=== PATIENT | female | born 1960 | race Caucasian/White ===

== ENCOUNTER 2022-08-30 00:22 | Day surgery (SDC) | payer OTHER, SELFPAY ==
[2022-08-20 09:34] VITALS: BMI 31.8
--- NOTE | 2022-08-30 08:30 | WPDANESEPPF ---
Anes - Initial Pre Proc Eval Procedure: Operation Date: 08/30/22 09:30 Proposed Procedures p Screening Colonoscopy - Pravin Galaviz MD Date/Time: 08/30/22 08:30 Surgeon: Pravin Galaviz MD Pre Op Diagnosis: neoplasm screening Patient Data Age: 62 Gender: F Height: 1.65 m Weight: 87 kg Allergies Allergy/AdvReac Type Severity Reaction Status Date / Time lisinopril Allergy Intermediate Cough Verified 08/30/22 08:43 Home Medications Medication Instructions Recorded Confirmed Type sodium,potassium,mag sulfates 17.5 See Rx Instructions PO .COMPLEX 07/17/22 08/20/22 Rx gram-3.13 gram-1.6 gram oral soln #354 mL (Suprep Bowel Prep Kit) ascorbic acid (vitamin C) 500 mg 500 mg PO DAILY 08/20/22 08/20/22 History tablet aspirin 81 mg tablet 81 mg PO HS 08/20/22 08/20/22 History buspirone 10 mg tablet 10 mg PO TID 08/20/22 08/30/22 History cetirizine 10 mg capsule (Zyrtec) 10 mg PO DAILY 08/20/22 08/20/22 History losartan 25 mg tablet 25 mg PO DAILY 08/20/22 08/20/22 History metoprolol succinate 50 mg 50 mg PO BID 08/20/22 08/30/22 History tablet,extended release 24 hr montelukast 10 mg tablet 10 mg PO DAILY 08/20/22 08/20/22 History rektzsquuqmy-lisfsedw-owwcam tablet 1 tablet PO DAILY 08/20/22 08/20/22 History sertraline 100 mg tablet 100 mg PO DAILY 08/20/22 08/20/22 History Patient hx anesthesia problems: none Family hx anesthesia problems: none Results Review: All pre-operative results and documents have been reviewed as part of the pre-operative evaluation. [facility] Past Medical History Medical History (Updated 08/30/22 @ 08:30 by Harshil Ferguson DO) Anxiety Bradycardia Hypertension Pacemaker Social History Social History Smoking status: Never smoker Alcohol intake: current Drinks per week: 3 Alcohol use details: BEERS Substance use: never Substance use type: does not use Living arrangements: with family Spiritual care concerns: No Anes - Eval Final PreProcedure Day of Procedure 08/30/22 08:30 Patient weight: obese Heart: regular rate and rhythm Lungs: clear to auscultation Airway: Mallampati scale class II Neurological: alert and oriented Last oral intake: >/= 8 hours ASA classification: III Emergent: no Anesthetic plan: proceed Anesthesia type and monitoring: general GIVS and standard monitoring Results Review: All pre-operative results and documents have been reviewed as part of the pre-operative evaluation. Informed Consent: The patient's anesthetic plan and its attendant risks and benefits were discussed with the patient/family/POA. Questions were solicited and answers provided to the satisfaction of the patient/family/POA.
[2022-08-30 08:45] VITALS: BP 132/98; PULSE 89; RESP 20; TEMP 36.1
[2022-08-30] MEDS: LACTATED RINGERS 1,000 ML 150 ML IV CONT (08:55)
--- NOTE | 2022-08-30 09:31 | P.HP_ITS ---
History of Present Illness History of Present Illness Consent: Risks, benefits, and alternatives have been discussed and questions answered. Patient agrees to proceed with procedure. Chief complaint: neoplasm screening Narrative: Josette Jovel is a 62 year old female Presents for screening colonoscopy. Patient's current weight appetite bowel movements are normal. Patient denies abdominal pain. She has had no bleeding. Family history is noncontributory. Previous colonoscopy 10 years was under with remarkable. 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 She has recently had a pacemaker with no difficulties. Review of Systems Review of Systems: Review of systems noncontributory. [facility] [place] Past Medical History Medical History (Updated 08/30/22 @ 09:33 by Pravin Galaviz MD) Anxiety Bradycardia Hypertension Pacemaker Social History Social History Smoking status: Never smoker Alcohol intake: current Drinks per week: 3 Alcohol use details: BEERS Substance use: never Substance use type: does not use Living arrangements: with family Spiritual care concerns: No Meds Home Medications and Allergies Home Medications Medication Instructions Recorded Confirmed Type sodium,potassium,mag sulfates 17.5 See Rx Instructions PO .COMPLEX 07/17/22 08/20/22 Rx gram-3.13 gram-1.6 gram oral soln #354 mL (Suprep Bowel Prep Kit) ascorbic acid (vitamin C) 500 mg 500 mg PO DAILY 08/20/22 08/20/22 History tablet aspirin 81 mg tablet 81 mg PO HS 08/20/22 08/20/22 History buspirone 10 mg tablet 10 mg PO TID 08/20/22 08/30/22 History cetirizine 10 mg capsule (Zyrtec) 10 mg PO DAILY 08/20/22 08/20/22 History losartan 25 mg tablet 25 mg PO DAILY 08/20/22 08/20/22 History metoprolol succinate 50 mg 50 mg PO BID 08/20/22 08/30/22 History tablet,extended release 24 hr montelukast 10 mg tablet 10 mg PO DAILY 08/20/22 08/20/22 History bbscaxizzqws-jpnlgbka-tfnjub tablet 1 tablet PO DAILY 08/20/22 08/20/22 History sertraline 100 mg tablet 100 mg PO DAILY 08/20/22 08/20/22 History Allergies Allergy/AdvReac Type Severity Reaction Status Date / Time lisinopril Allergy Intermediate Cough Verified 08/30/22 08:43 Vital Signs Vital Signs - 24 hr 08/30/22 08:45 Temperature 97 F L Pulse Rate 89 Respiratory Rate 20 Blood Pressure 132/98 H Oxygen Delivery Room Air Exam Narrative: Physical exam reveals patient to be alert. Vital signs stable. HEENT exam is unremarkable. lungs are clear to auscultation and percussion. Heart is without murmur or extra sounds. Abdomen bowel sounds are present soft nontender with no organomegaly. Digital external rectal exam normal. Assessment and Plan Assessment and plan (1) Encounter for screening colonoscopy: Code(s): Z12.11 - Encounter for screening for malignant neoplasm of colon Status: Acute Assessment and Plan: Patient presents today for screening colonoscopy. She appears to be at average risk for colon polyps. Further recommendations may be given after endoscopy.
[2022-08-30 10:00] VITALS: BP 102/60; PULSE 73; RESP 15; O2SAT 97
[2022-08-30 10:10] VITALS: BP 139/82; PULSE 70; RESP 22; O2SAT 100
[2022-08-30 10:20] VITALS: BP 138/84; PULSE 70; RESP 21; O2SAT 100
== END 2022-08-30 10:26 | disposition home or self-care (01) ==
PROVIDERS: Visit Provider Internal Medicine Gastroenterology
PROC: 0DJD8ZZ Inspection of Lower Intestinal Tract, Via Natural or Artificial Opening Endoscopic (ICD-10-PCS; CPT 45378; principal; 2022-08-30 09:30)
DX: Z12.11 Encounter for screening for malignant neoplasm of colon (principal); K64.8 Other hemorrhoids; K57.30 Diverticulosis of large intestine without perforation or abscess without bleeding; I10 Essential (primary) hypertension; F41.9 Anxiety disorder, unspecified; Z95.0 Presence of cardiac pacemaker; Z79.82 Long term (current) use of aspirin; E66.9 Obesity, unspecified; Z68.32 Body mass index [BMI] 32.0-32.9, adult
CPT/HCPCS: 45378; J2704; J7120